=== PATIENT | female | born 1950 | race African-American/Black ===

== ENCOUNTER 2017-04-09 04:28 | Emergency (ER) | payer MEDICARE, OTHER ==
[2017-04-09] MEDS ORDERED: LIDOCAINE 5% (700 MG) TRANSDERMAL ADH..PATCH TP ONE (06:32)
--- NOTE | 2017-04-09 06:36 | ER Document Report ---
ED General - General Chief Complaint: Neck and Upper Back Pain Stated Complaint: NECK AND SHOULDER PAIN Time Seen by Provider: 04/09/17 06:22 TRAVEL OUTSIDE OF THE [place] IN LAST 30 DAYS: No - HPI Patient complains to provider of: Left-sided neck pain Notes: Patient states woke up with sharp shooting left-sided neck pain going from the top of the left shoulder up to the left lateral side of the neck to the patient' s head. Patient states 5 out of 5 upon initiation of the pain currently is resting comfortably in a sitting position with her head laying on her right shoulder upon my evaluation. Patient easily arousable states pain has pretty much subsided since coming here to the ER. Denies taking any medication denies any trauma denies any fevers chills nausea vomiting denies any numbness or tingling. - Related Data Allergies/Adverse Reactions: No Known Allergies Allergy (Unverified 04/09/17 04:35) Past Medical History - Social History Smoking Status: Former Smoker Frequency of alcohol use: Occasional Drug Abuse: None Family History: Reviewed & Not Pertinent Patient has suicidal ideation: No Patient has homicidal ideation: No - Past Medical History Cardiac Medical History: Reports: Hx Hypertension Renal/ Medical History: Denies: Hx Peritoneal Dialysis Review of Systems - Review of Systems Constitutional: No symptoms reported EENT: Other - Neck pain Cardiovascular: No symptoms reported Respiratory: No symptoms reported Gastrointestinal: No symptoms reported Genitourinary: No symptoms reported Female Genitourinary: No symptoms reported Musculoskeletal: No symptoms reported Skin: No symptoms reported Hematologic/Lymphatic: No symptoms reported Neurological/Psychological: No symptoms reported Physical Exam - Vital signs Vitals: Temp Pulse Resp BP Pulse Ox 97.8 F 69 18 135/82 H 96 04/09/17 04:30 04/09/17 04:30 04/09/17 04:30 04/09/17 04:30 04/09/17 04:30 Interpretation: Normal - General General appearance: Appears well, Alert - HEENT Head: Normocephalic, Atraumatic Eyes: Normal Pupils: PERRL Neck: Other - Range of motion of the neck is intact. Active and passive. Patient does have pain to palpation of the lateral part of the trapezius muscle going up to the left lateral paraspinal region of the neck. Tissue is boggy consistent with muscle spasm - Respiratory Respiratory status: No respiratory distress Chest status: Nontender Breath sounds: Normal Chest palpation: Normal - Cardiovascular Rhythm: Regular Heart sounds: Normal auscultation Murmur: No - Abdominal Inspection: Normal Distension: No distension Bowel sounds: Normal Tenderness: Nontender Organomegaly: No organomegaly - Back Back: Normal, Nontender - Extremities General upper extremity: Normal inspection, Nontender, Normal color, Normal ROM , Normal temperature General lower extremity: Normal inspection, Nontender, Normal color, Normal ROM , Normal temperature, Normal weight bearing. No: Anna Marie's sign - Neurological Neuro grossly intact: Yes Cognition: Normal Orientation: AAOx4 Artie Coma Scale Eye Opening: Spontaneous Artie Coma Scale Verbal: Oriented Ham Coma Scale Motor: Obeys Commands Ham Coma Scale Total: 15 Speech: Normal Motor strength normal: LUE, RUE, LLE, RLE Sensory: Normal - Psychological Associated symptoms: Normal affect, Normal mood - Skin Skin Temperature: Warm Skin Moisture: Dry Skin Color: Normal Course - Re-evaluation Re-evalutation: 04/09/17 07:11 Patient will likely suffer from a muscle spasm within her neck. Patient will be given Lidoderm patch educated about use Tylenol Motrin volume was given for the patient to take at night for severe pain again. Patient states understanding will be discharged home. - Vital Signs Vital signs: Temp Pulse Resp BP Pulse Ox 97.8 F 65 17 102/70 97 04/09/17 06:42 04/09/17 06:42 04/09/17 06:42 04/09/17 06:42 04/09/17 06:42 Discharge - Discharge Clinical Impression: Muscle spasm Condition: Good Disposition: HOME, SELF-CARE Instructions: Myalagia (Muscle Pain) (OM), Muscle Relaxers (OM) Additional Instructions: Your examination today is consistent with a muscle spasm within the neck. If you receive good pain relief with the Lidoderm patch provided please discuss with your pharmacist about [id number] option. I will also prescribe you Valium. Please be aware that the volume may make you sleepy. I would take the Valium at nighttime for pain. During today take Tylenol Motrin. Return to ER symptoms worsen. Prescriptions: Diazepam [Valium 2 mg Tablet] 2 mg PO Q6HP PRN #15 tablet PRN Reason: Forms: Return to Work
[2017-04-09 06:43] VITALS: BP 102/70
== END 2017-04-09 07:02 | disposition home or self-care (01) ==
LOC: ER 04:28
DX: M62.838 Other muscle spasm (principal); M54.2 Cervicalgia; M54.89 Other dorsalgia; I10 Essential (primary) hypertension; Z87.891 Personal history of nicotine dependence
CPT/HCPCS: 99283